=== PATIENT | female | born 1950 | race Caucasian/White ===

== ENCOUNTER → 2016-06-18 | Outpatient (CLI) | payer OTHER ==
[2016-06-18 09:10] LABS: CREATININE 1.24 mg/dL (0.55-1.02)
--- NOTE | 2016-06-18 14:01 | MRI ---
STUDY: MRI OF THE BRAIN WITHOUT AND WITH GADOLINIUM HISTORY: Headache. Unspecified hearing loss. Abnormalities of gait and mobility. Weakness and fatig ue. Technique: Multiplanar multi-sequence MRI of the brain was obtained utilizing standard departmental protocol. Sagittal and axial T1, axial T2, FLAIR, diffusion (DWI/ADC) images through the brain were performed. 14 cc of Omniscan was administered intravenously without reported complication following acquisition of informed written consent. Post gadolinium axial and coronal T1 weighted images were also perform ed and reviewed. Comparison: None. Findings: Pre gadolinium brain: The sulci, cisterns and ventricles are age appropriate. There are confluent an d scattered foci of T2 prolongation in the periventricular and subcortical white matter of both david spheres. This is a nonspecific finding which likely represents microangiopathic change in a patient of this age. There is no evidence of acute territorial infarction, hemorrhage, mass, mass effect, or midline shif t. There are no abnormal intra-axial or extra-axial fluid collections. The major intracranial vascul ar flow voids appear intact. The vertebral arteries are codominant. Post gadolinium brain: Following the uneventful administration of intravenous gadolinium, there is n o evidence of abnormal parenchymal or leptomeningeal enhancement. IMPRESSION: 1. No evidence of acute intracranial abnormality. 2. Nonspecific white matter change. Reported By:
== END ==
LOC: RAD 08:22
PROVIDERS: ATTEND Internal Medicine
DX: R42 Dizziness and giddiness (principal); R51 Headache; R26.89 Other abnormalities of gait and mobility; R53.83 Other fatigue; H91.8X3 Other specified hearing loss, bilateral
CPT/HCPCS: 36415; 70553; 82565; 84520